=== PATIENT | male | born 1960 | race Hispanic/Latino ===

== ENCOUNTER 2019-07-21 16:22 | Outpatient (CLI) | payer BC, SELFPAY ==
--- NOTE | ~2019-07-21 | US_ITS ---
EXAMINATION: US scrotum doppler DATE: 07/21/2019 17:16 INDICATION: Left testicular pain TECHNIQUE: Testicular sonogram utilizing grayscale and Doppler COMPARISON: None. FINDINGS: The right testis measures 3.5 x 2.1 x 3.8 cm. The left testis measures 4.0 x 2.3 x 3.2 cm. There is normal vascular flow to both testes. The right epididymis is normal with normal vascular dianne w. The left epididymis is normal with normal vascular flow. There is a small left hydrocele. IMPRESSION: 1. Small left hydrocele. Reviewed, dictated and finalized at location A. IMPRESSION: 1. Small left hydrocele.
[2019-07-21 17:41] LABS: Cholesterol 186 mg/dL (0-200); HDL Direct 35 mg/dL; Triglycerides 151 mg/dL (<150)
[2019-07-21 17:56] LABS: LDL Cholesterol Direct 113 mg/dL
== END 2019-07-21 16:23 | disposition home or self-care (01) ==
PROVIDERS: PCP Internal Medicine; Visit Provider Internal Medicine
DX: N44.8 Other noninflammatory disorders of the testis (principal); Z13.220 Encounter for screening for lipoid disorders; N43.3 Hydrocele, unspecified
CPT/HCPCS: 36415; 76870; 80061; 93976

== ENCOUNTER 2020-09-10 18:21 | Emergency (ER) | payer BC, SELFPAY ==
--- NOTE | ~2020-09-10 | XR_ITS ---
EXAMINATION: XR ankle LT min 3V EXAM DATE: 09/10/2020 19:49 INDICATION: Initial encounter following injury, with pain of the left ankle. TECHNIQUE: Left ankle frontal, lateral and oblique projections obtained and reviewed. There is no pr ior study for comparison. FINDINGS: The left ankle mortise appears intact. There are no acute fractures or dislocations ident ified. There is no subcutaneous gas. The soft tissue is unremarkable. There are no radiopaque for eign bodies. IMPRESSION: 1. XR ankle LT min 3V exam without acute osseous findings. Reviewed, dictated and finalized at location A.
[2020-09-10 19:30] VITALS: BP 113/81; PULSE 78; RESP 16; TEMP 36.6; O2SAT 98
--- NOTE | 2020-09-10 21:16 | ED.LOWEXIN ---
HPI - Extremity Injury (Lower) General Chief Complaint: Extremity Injury, Lower Stated Complaint: left ankle pain Time Seen by Provider: 09/10/20 20:53 Source: patient and family Mode of arrival: ambulatory Limitations: no limitations History of Present Illness HPI Narrative: 60-year-old with no major medical problems here with complaints of left ankle pain for past 5 days. Patient states that he accidentally twisted his ankle while he was at work. He complains of swelling and occasional pain. MD complaint: ankle injury (left) Injury: Left: ankle Type of Injury: inversion Place: work Severity: mild Relieving factors: nothing Exacerbating factors: nothing Associated symptoms: swelling Other symptoms: none Related Data Allergies Allergy/AdvReac Type Severity Reaction Status Date / Time No Known Allergies Allergy Unverified 07/30/13 11:00 Review of Systems Review of Systems: All systems reviewed & are unremarkable except as noted in HPI and below Constitutional: Constitutional: Reports no additional constitutional complaints Eyes: Eyes: Reports no additional eye complaints ENT: Reports system reviewed and no additional complaints, except as documented Cardiovascular: Cardiovascular: Reports no additional cardiovascular complaints Respiratory: Respiratory: Reports no additional respiratory complaints Gastrointestinal: Gastrointestinal: Reports no additional gastrointestinal complaints Musculoskeletal: Musculoskeletal: Reports as per HPI Exam Narrative: Exam Narrative: GENERAL: Well-appearing, well-nourished, and in no acute distress. HEAD: Normocephalic, atraumatic. EYES: PERRLA and EOMI.. NECK: Supple. CHEST: Clear to auscultation. No respiratory distress. HEART: Regular rate and rhythm. No murmur heard. Normal peripheral pulses. ABDOMEN: Soft, nontender, nondistended, normal active bowel sounds. EXTREMITIES: Normal range of motion. Mild soft tissue swelling on the medial aspect of left ankle. SKIN: Warm, dry, no rash. NEURO: No focal deficits. Alert and oriented x3. PSYCH: Normal mood and affect. Course Course Emergency Course: Inform patient about his x-ray findings. At this time it appears to be an ankle sprain. Advised Brad wrap. Take Tylenol ibuprofen for pain. Vital Signs Vital signs: Vital Signs Temperature 36.6 C 09/10/20 19:30 Pulse Rate 78 09/10/20 19:30 Respiratory Rate 16 09/10/20 19:30 Blood Pressure 113/81 09/10/20 19:30 Pulse Oximetry 98 09/10/20 19:30 Temperature 36.6 C 09/10/20 19:30 Pulse Rate 78 09/10/20 19:30 Respiratory Rate 16 09/10/20 19:30 Blood Pressure 113/81 09/10/20 19:30 Pulse Oximetry 98 09/10/20 19:30 MDM - Extremity Injury (Lower) Imaging Data Radiologist's impression: ITS Impressions Ankle X-Ray 09/10/20 19:52 IMPRESSION: 1. XR ankle LT min 3V exam without acute osseous findings. Discharge Plan Discharge Clinical Impression: Ankle sprain and strain Patient Disposition: Home, Self-Care Condition: Stable Instructions: Antibiotic Form, Ankle Sprain (ED) Prescriptions: New ibuprofen 600 mg tablet 600 mg PO TID PRN (Reason: pain) Qty: 20 RF: 0 Follow-up/Referrals: Husam,MD Valencia ([place]) [Primary Care Provider] - Time of Disposition: 21:19
[2020-09-10 21:27] VITALS: BP 122/78; PULSE 76; RESP 18; O2SAT 99
== END 2020-09-10 21:28 | disposition home or self-care (01) ==
PROVIDERS: Emergency Provider Family Medicine; PCP Internal Medicine
DX: S93.402A Sprain of unspecified ligament of left ankle, initial encounter (principal); S96.912A Strain of unspecified muscle and tendon at ankle and foot level, left foot, initial encounter; X50.9XXA Other and unspecified overexertion or strenuous movements or postures, initial encounter
CPT/HCPCS: 73610; 99283

== ENCOUNTER 2024-11-08 17:53 | Emergency (ER) | payer OTHER, SELFPAY ==
[2024-11-08 17:58] VITALS: BP 127/82; PULSE 68; RESP 16; TEMP 37.1; O2SAT 98
--- NOTE | 2024-11-08 18:23 | ED_ITS ---
HPI - Skin/Abscess/Foreign Bdy General Chief complaint: Skin/Abscess/Foreign Body Stated complaint: skin irritation Time Seen by Provider: 11/08/24 17:55 Source: patient Mode of arrival: ambulatory Limitations: no limitations History of Present Illness HPI narrative: Patient is a 64-year-old male who presents with rash to right forearm for 3 days. Patient was pulling weeds and notice rash the next day. Patient concern for poison suzan. States it is only mildly itchy. Denies any pain, shortness breath, fever, chills. Has use ointment with no relief. Related Data Allergies Allergy/AdvReac Type Severity Reaction Status Date / Time No Known Allergies Allergy Unverified 11/08/24 18:07 Review of Systems Review of Systems: All systems reviewed & are unremarkable except as noted in HPI and below Constitutional: Constitutional: Denies body ache(s), Denies chills, Denies fatigue, Denies fever(s), Denies headache(s), Denies malaise and Denies weakness Eyes: Eyes: Denies blurry vision, Denies irritation and Denies loss of vision ENT: Denies otalgia, Denies headache(s), Denies nasal discharge, Denies sinus pain and Denies sore throat Cardiovascular: Cardiovascular: Denies chest pain, Denies irregular heart rhythm and Denies dyspnea Respiratory: Respiratory: Denies dyspnea Gastrointestinal: Gastrointestinal: Denies abdominal pain, Denies melena, Denies hematochezia, Denies diarrhea, Denies nausea and Denies vomiting Musculoskeletal: Musculoskeletal: Denies back pain, Denies myalgias and Denies arthralgias Integumentary/Breasts: Skin/Breast: Reports pruritus and Reports rash Neurologic: Denies headache(s), Denies loss of vision and Denies weakness Psychiatric: Psychiatric: Reports no additional psychiatric complaints Endocrine: Endocrine: Denies fatigue PMFSH Social History Social History Smoking status: Never smoker Alcohol intake: current Lack of Transportation: No Lack of Food: Never True Current Housing: I Have Housing Concerned About Future Housing: No Difficulty Paying Gas/Electric Bills: No Difficulty Paying for Meds: No Currently Unemployed: No Education: Grade School Difficulty w/ Childcare or Family Care: No Comments At time of signature, agree with nursing past medical, surgical, social and family history. There is no relevant family history pertinent to the presenting complaint. Exam Const: General: cooperative, healthy appearing, comfortable, no acute distress and well nourished Nutritional Appearance: well nourished Orientation/consciousness: patient oriented x3 Limitations: no limitations HENMT: Head: normal to inspection, normocephalic and atraumatic Ears: hearing grossly normal bilaterally and external ears normal Face/Nose/Sinus: Normal external nose present, normal facial exam and face symmetric Face and sinus: normal facial exam and face symmetric Mouth: Yes lip normal Eyes: General: appearance normal, both eyes and all related structures Alignment and Position: alignment normal and position normal Periorbital: periorbital findings normal Eyelids: eyelids normal Pupils: Equal, round and reactive pupils present EOM: EOMs intact bilaterally Neck: Neck: normal visual inspection, full ROM and supple Chest: Chest palpation & inspection: normal inspection of the chest Resp: Effort & Inspection: normal respiratory effort and able to speak in complete sentences Auscultation: clear to auscultation bilaterally Cardio: Rate: regular rate Rhythm: regular rhythm Heart sounds: S1 normal heart sound present and S2 normal heart sound present GI: Inspection: normal to inspection Skin: General skin exam: normal color Rashes: rashes noted vesicles right forearm arrangement grouped, borders sharp and irregular, fluctuant and surface waxy and wet Neuro: General: patient oriented x3 and moves all extremities Cranial nerves: Yes Equal, round and reactive pupils present Speech: normal speech Gait exam (Neuro): Normal gait present Extrem: General: normal to inspection, full ROM and no edema Psych: Appearance: grossly normal and well kempt Mental Status: mental status grossly normal Speech and movement: Normal speech and movement present Affect: normal affect Attitude: cooperative Thought process: Normal thought process present Course Course Emergency Course: Patient is aware of diagnosis, understands and agrees to treatment plan. Anticipatory guidance given. Patient agrees to follow-up as directed and is aware of reasons to seek care at the emergency department. Portions of this record may have been created with voice recognition software Level of Care: Express Care Visit Vital Signs Vital signs: Vital Signs Temperature 37.1 C 11/08/24 17:58 Pulse Rate 68 11/08/24 17:58 Respiratory Rate 16 11/08/24 17:58 Blood Pressure 127/82 11/08/24 17:58 Pulse Oximetry 98 07/08/25 17:58 Oxygen Delivery Room Air 11/08/24 17:58 Temperature 37.1 C 11/08/24 17:58 Pulse Rate 68 11/08/24 17:58 Respiratory Rate 16 11/08/24 17:58 Blood Pressure 127/82 11/08/24 17:58 Pulse Oximetry 98 11/08/24 17:58 Oxygen Delivery Room Air 11/08/24 17:58 Reviewed MDM - Skin/Abscess/Foreign Bdy MDM Narrative Medical decision making narrative: Exam consistent with poison suzan. Will treat with long steroid taper Pt well hydrated appearing, in no respiratory distress, hemodynamically stable. Recommend supportive care. The patient is stable at time of discharge the clinical impression was discussed and the patient was given the opportunity to ask questions, which were addressed as completely as possible given the information available at present. Anticipatory guidance and return to care precautions were discussed and the importance of primary care follow-up was stressed and encouraged. The patient voiced understanding of the plan, indications to return, and the need for follow-up. Exam findings show no acute concerns or changes Patient is appropriate for outpatient treatment and follow-up. Differential Diagnosis Differential diagnosis: Likely viral exanthem, urticaria, herpes zoster, cellulitis, insect bites, impetigo and contact dermatitis (Poison suzan) Medical Records Attestation: I reviewed the patient's medical records. Discharge Plan Discharge Clinical Impression: Poison suzan dermatitis Patient Disposition: Home Condition: Stable Instructions: Poison Suzan (ED) Additional Instructions: Take steroids in the morning with food Prevention is always better than treatment. Learn to identify poison suzan, oak, and sumac and avoid it. Wear long sleeves, long pants, shoes, and socks. If you touched the plant, try to keep your hands away from your eyes, mouth, and face. Wash the skin thoroughly with soap and cool water as soon as possible. Scrub under the fingernails with a brush to prevent spreading of the resin to other parts of the body by touching or scratching. Remember to wash any clothing with soap and hot water as the resin can persist for many months and cause further dermatitis. You should NOT use antihistamine creams or lotions, anesthetic creams containing benzocaine, or antibiotic creams containing neomycin or bacitracin to the skin. These creams or ointments could make the rash worse. For some people, adding oatmeal to a bath, applying cool wet compresses, and applying calamine lotion may help to relieve itching. Once the blisters begin weeping fluid, astringents containing aluminum acetate (Burow's solution) and [place] may help to relieve the rash. IF symptoms get worse to follow up with your primary care provider or seek ER visit if you developing difficulty breathing, weakness, dizziness. [place] esteroides por la ma?saravanan con las comidas. M?s tao prevenir que curar. Aprenda a identificar la hiedra venenosa, el tati venenoso y el zumaque venenoso y ev?telos. Use mangas largas, pantalones largos, zapatos y calcetines. Si jude? la planta, evite tocarse los ojos, la boca y la geni con las noemí. Lave bo la piel con agua fr?a y jab?n lo antes posible. Frote debajo de las u?as con un cepillo para evitar que la resina se extienda a otras partes del cuerpo al tocarse o rascarse. Recuerde bijal la ropa con pala y jab?n, ya que la resina puede persistir jem muchos meses y causar m?s dermatitis. NO debe usar cremas ni lociones antihistam?nicas, cremas anest?sicas que contengan benzoca?na ni cremas antibi?arnol que contengan neomicina o bacitracina en la piel. Estas cremas o home?entos podr?an empeorar la erupci?n. Para algunas personas, a?adir rianna al ba?o, aplicar compresas h?medas fr?as y aplicar loci?n de calamina puede ayudar a aliviar la picaz?n. Charito vez que las ampollas comiencen a supurar, los astringentes con acetato de aluminio (soluci?n de Burow) y [place] pueden ayudar a aliviar la erupci?n. Si los s?ntomas empeoran, consulte con nassar m?dico de cabecera o acuda a urgencias si presenta dificultad para respirar, debilidad o mareos. Patient Language: Serbian Prescriptions: New prednisone 10 mg tablet See Rx Instructions .ROUTE .COMPLEX Qty: 35 0RF Rx Instructions: 40 mg daily for 5 days, 20 mg daily for 5 days, 10 mg daily for 5 days Follow-up/Referrals: Husam,MD Valencia ([place]) [Primary Care Provider] - 3 Days Time of Disposition: 18:47
== END 2024-11-08 18:52 | disposition home or self-care (01) ==
PROVIDERS: Emergency Provider Nurse Practitioner Family; PCP Internal Medicine
DX: L23.7 Allergic contact dermatitis due to plants, except food (principal)
CPT/HCPCS: 99213; G0463